=== PATIENT | female | born 1975 | race Caucasian/White ===

== ENCOUNTER → 2017-05-03 | Outpatient (CLI) | payer BC | LOC: LAB SHORT 10:17 | DX: J02.9 Acute pharyngitis, unspecified (principal) | CPT/HCPCS: 87070 ==

== ENCOUNTER 2022-06-21 13:16 | Day surgery (SDC) | payer BC ==
[~2022-06-21] VITALS: Ht 157.5 cm; Wt 119.8 kg
[2022-06-21] MEDS ORDERED: LOSA25 (13:35)
[2022-06-21] MEDS ORDERED: MELO7.5 (13:35)
[2022-06-21] MEDS ORDERED: CYMBALTA60 M1 (13:35)
[2022-06-21] MEDS ORDERED: EUTHYROX50 MCG (13:36)
== END 2022-06-21 14:50 | disposition home or self-care (01) ==
LOC: ORSCSDS 13:16
PROVIDERS: Internal Medicine Gastroenterology
PROC: 0DB68ZX Excision of Stomach, Via Natural or Artificial Opening Endoscopic, Diagnostic (ICD-10-PCS; principal; 2022-06-21 14:45)
DX: Z01.818 Encounter for other preprocedural examination (principal); K29.70 Gastritis, unspecified, without bleeding; E78.5 Hyperlipidemia, unspecified; E11.9 Type 2 diabetes mellitus without complications; I10 Essential (primary) hypertension; E03.9 Hypothyroidism, unspecified; E66.01 Morbid (severe) obesity due to excess calories; Z68.42 Body mass index [BMI] 45.0-49.9, adult; Z87.891 Personal history of nicotine dependence; Z79.899 Other long term (current) drug therapy
CPT/HCPCS: 82947; 88305; 88341; 88342; J2704; J7120